=== PATIENT | female | born 1995 | race Caucasian/White ===

== ENCOUNTER 2024-02-05 13:36 | Outpatient (CLI) | payer OTHER | END 2024-02-05 13:37 | disposition home or self-care (01) | LOC: RAD 13:36 | PROVIDERS: ATTEND Nurse Practitioner Family | DX: M25.572 Pain in left ankle and joints of left foot (principal); R10.32 Left lower quadrant pain; S32.592D Other specified fracture of left pubis, subsequent encounter for fracture with routine healing | CPT/HCPCS: 72170 ==

== ENCOUNTER 2024-03-28 13:06 | Day surgery (SDC) | payer OTHER ==
[2024-03-28] MEDS ORDERED: Lidocaine 1% PF 5 ML VIAL ONE (13:41)
[2024-03-28] MEDS ORDERED: Sodium Bicarbonate 2.5 MEQ/5 ML SDV ONE (13:41)
== END 2024-03-28 14:40 | disposition home or self-care (01) ==
LOC: ULT 13:06
PROVIDERS: ATTEND Otolaryngology
PROC: 0G9H3ZZ Drainage of Right Thyroid Gland Lobe, Percutaneous Approach (ICD-10-PCS; principal; 2024-03-28)
DX: E04.1 Nontoxic single thyroid nodule (principal)
CPT/HCPCS: 10005; 88173